=== PATIENT | male | born 1945 ===

== ENCOUNTER 2018-02-02 13:32 | Inpatient (IN) | payer MEDICARE ==
--- NOTE | 2018-02-02 14:05 | ED PDOC ---
HPI: Abdomen Time Seen by Provider: 02/02/18 13:54 Chief Complaint (Nursing): Abdominal Pain Chief Complaint (Provider): Abdominal Pain History Per: Patient History/Exam Limitations: no limitations Onset/Duration Of Symptoms: Days (x3) Outside of [place] travel?: No Current Symptoms Are (Timing): Still Present Location Of Pain/Discomfort: LLQ Quality Of Discomfort: Other (achy discomfort) Associated Symptoms: denies: Fever, Nausea, Vomiting, Diarrhea Additional Complaint(s): 72 y/o male with a history of diverticulitis and hypercholesterolemia presents to the ED for LLQ abdominal pain. Patient states it began 3 days ago and went in to see his PMD for further evaluation when he was instructed to come into the ED. He describes the pain as mild achy discomfort. Patient denies any nausea , vomiting, diarrhea, fever, or hematochezia. Of note, patient has an enlarged prostate. PMD: Abel Breen Past Medical History Reviewed: Historical Data, Nursing Documentation, Vital Signs Vital Signs: Last Vital Signs Temp 98.1 F 02/02/18 13:47 Pulse 73 02/02/18 13:47 Resp 18 02/02/18 13:47 BP 146/72 02/02/18 13:47 Pulse Ox 98 02/02/18 14:18 - Medical History PMH: Diverticulitis, Hypercholesterolemia Denies: Chronic Kidney Disease - Surgical History Surgical History: No Surg Hx - Family History Family History: States: Unknown Family Hx - Home Medications Home Medications: Ambulatory Orders Medication Instructions Recorded Clonazepam 2 mg PO HS 10/02/16 - Allergies Allergies/Adverse Reactions: Allergies Allergy/AdvReac Type Severity Reaction Status Date / Time No Known Allergies Allergy Verified 02/02/18 13:46 Review of Systems ROS Statement: Except As Marked, All Systems Reviewed And Found Negative Constitutional: Negative for: Fever Gastrointestinal: Positive for: Abdominal Pain (LLQ). Negative for: Nausea, Vomiting, Diarrhea, Hematochezia Physical Exam - Reviewed Nursing Documentation Reviewed: Yes Vital Signs Reviewed: Yes - Physical Exam Appears: Positive for: Well, Non-toxic, No Acute Distress Head Exam: Positive for: ATRAUMATIC, NORMAL INSPECTION, NORMOCEPHALIC Skin: Positive for: Normal Color, Warm, Dry Eye Exam: Positive for: EOMI, Normal appearance, PERRL Cardiovascular/Chest: Positive for: Regular Rate, Rhythm. Negative for: Murmur Respiratory: Positive for: Normal Breath Sounds. Negative for: Respiratory Distress Gastrointestinal/Abdominal: Positive for: Normal Exam, Soft, Tenderness (mild to LLQ). Negative for: Mass, Guarding Extremity: Positive for: Normal ROM. Negative for: Calf Tenderness, Swelling Neurologic/Psych: Positive for: Alert, Oriented (x3) - Laboratory Results Result Diagrams: 02/02/18 14:19 02/02/18 14:19 - ECG O2 Sat by Pulse Oximetry: 98 (RA) Pulse Ox Interpretation: Normal Medical Decision Making Medical Decision Making: Time: 13:47 Impression: Abdominal pain r/o diverticulitis and gastroenteritis Initial Plan: * CAT Scan Abd/Pelvis IV contrast * CMP * UDip * CBC * Blood Culture Scribe Attestation: Documented by Everette Short acting as a scribe for Malou Elkins MD. Scribe Attestation: All medical record entries made by the Scribe were at my direction and personally dictated by me. I have reviewed the chart and agree that the record accurately reflects my personal performance of the history, physical exam, medical decision making, and the department course for this patient. I have also personally directed, reviewed, and agree with the discharge instructions and disposition. Disposition - Clinical Impression Clinical Impression: Abdominal pain - Patient ED Disposition Is Patient to be Admitted: Transfer of Care - Disposition Disposition: Transfer of Care Disposition Time: 14:49 Condition: FAIR Forms: Humansized (Tajik) Patient Signed Over To: Lalita Lopez
[2018-02-02 14:31] LABS: BASO # 0.1 K/uL (0.0-0.2); BASO % 1.3 % (0.0-2.0); EOS # 0.3 K/uL (0.0-0.7); HEMOGLOBIN 14.4 g/dL (12.0-18.0); LYMPH % 27.1 % (20.0-40.0); MEAN CELL VOLUME 90.2 fl (80.0-94.0); MEAN CORPUSCULAR HEMOGLOBIN 30.4 pg (27.0-31.0); MEAN CORPUSCULAR HGB CONC 33.7 g/dL (33.0-37.0); MEAN PLATELET VOLUME 10.4 fl (7.2-11.7); MONO # 0.7 K/uL (0.0-0.8); MONO % 8.8 % (0.0-10.0); NEUT # 4.4 K/uL (1.8-7.0); NEUT % 58.8 % (50.0-75.0); RBC 4.74 Mil/uL (4.40-5.90); RED CELL DISTRIBUTION WIDTH 14.2 % (11.5-14.5); WHITE BLOOD COUNT 7.4 K/uL (4.8-10.8)
[2018-02-02 14:45] LABS: ALB/GLOB RATIO 1.1 (1.0-2.1); ALBUMIN 3.9 g/dL (3.5-5.0); ALT/SGPT 35 U/L (21-72); AST/SGOT 21 U/L (17-59); BLOOD UREA NITROGEN 17 mg/dl (9-20); GFR AFRICAN-AMERICAN > 60; GFR NON-AFRICAN AMERICAN > 60
[2018-02-02] MEDS ORDERED: Sodium Chloride 0.9% 50 ML IV ONE (14:52)
[2018-02-02] MEDS ORDERED: Iohexol 300 100 ML IJ ONE (14:52)
--- NOTE | 2018-02-02 15:05 | ED PDOC ---
- Laboratory Results Result Diagrams: 02/02/18 14:19 02/02/18 14:19 - ECG O2 Sat by Pulse Oximetry: 98 (RA) Pulse Ox Interpretation: Normal Medical Decision Making Medical Decision Making: Patient signed out to me by Dr. Westfall @ 15:00, pending CT Abdominal and Pelvis with IV Contrast, labs, and reassessment. Time: 16:24 CT Abdominal and Pelvis with IV Contrast FINDINGS: LOWER THORAX: There is mild linear atelectasis in the lung bases. There is trace pericardial effusion. LIVER: Normal in size with homogeneous enhancement there is fatty liver. . No gross lesion or ductal dilatation. GALLBLADDER AND BILE DUCTS: There are no calcified gallstones. PANCREAS: Normal in size with homogeneous enhancement. No gross lesion or ductal dilatation. SPLEEN: Normal in size and appearance. ADRENALS: No discrete nodules. KIDNEYS AND URETERS: Normal in size with homogeneous enhancement. No hydronephrosis. No solid mass. VASCULATURE: Atherosclerotic aortoiliac calcifications. No aortic aneurysm. BOWEL: The small bowel loops are normal in caliber. There is extensive left colonic diverticulosis. There is apparent segmental mural thickening in the splenic flexure of colon, proximal and mid descending colon. There is moderate amount of stool in the colon. APPENDIX: Normal appendix. PERITONEUM: No free fluid. No free air. LYMPH NODES: No enlarged lymph nodes. BLADDER: Unremarkable. REPRODUCTIVE: Mild enlargement of the prostate gland with median lobe hypertrophy indenting the base of the urinary bladder. BONES: No acute fracture. OTHER FINDINGS: None. IMPRESSION: 1. Extensive left colonic diverticulosis. Apparent segmental mural thickening in the splenic flexure of colon, proximal and mid descending colon is nonspecific and could represent nonspecific infectious/ inflammatory colitis in the appropriate clinical setting. No evidence for perforation or abscess. 2. Mild enlargement of the prostate gland with median lobe hypertrophy indenting on the base of the urinary bladder. Please correlate with PSA levels. Scribe Attestation: Documented by Estevan Patiño, acting as a scribe for Lalita Lopez MD Provider Scribe Attestation: All medical record entries made by the Scribe were at my direction and personally dictated by me. I have reviewed the chart and agree that the record accurately reflects my personal performance of the history, physical exam, medical decision making, and the department course for this patient. I have also personally directed, reviewed, and agree with the discharge instructions and disposition. Disposition - Clinical Impression Clinical Impression: Colitis - POA Present On Arrival: None - Disposition Disposition: Admitted as In-Patient Disposition Time: 17:42 Condition: STABLE
--- NOTE | 2018-02-02 16:25 | CT ---
PROCEDURE: CT Abdomen and Pelvis with contrast HISTORY: h/o diverticulitis LLQ pain COMPARISON: None. TECHNIQUE: CT scan of the abdomen and pelvis was performed after administration of intravenous contrast. Oral contrast was not administered. Coronal and sagittal reformatted images were obtained. Contrast dose: 90 mL Omnipaque 300 Radiation dose: Total exam DLP = 509.79 mGy-cm. This CT exam was performed using one or more of the following dose reduction techniques: Automated exposure control, adjustment of the mA and/or kV according to patient size, and/or use of iterative reconstruction technique. FINDINGS: LOWER THORAX: There is mild linear atelectasis in the lung bases. There is trace pericardial effusion. LIVER: Normal in size with homogeneous enhancement there is fatty liver. . No gross lesion or ductal dilatation. GALLBLADDER AND BILE DUCTS: There are no calcified gallstones. PANCREAS: Normal in size with homogeneous enhancement. No gross lesion or ductal dilatation. SPLEEN: Normal in size and appearance. ADRENALS: No discrete nodules. KIDNEYS AND URETERS: Normal in size with homogeneous enhancement. No hydronephrosis. No solid mass. VASCULATURE: Atherosclerotic aortoiliac calcifications. No aortic aneurysm. BOWEL: The small bowel loops are normal in caliber. There is extensive left colonic diverticulosis. There is apparent segmental mural thickening in the splenic flexure of colon, proximal and mid descending colon. There is moderate amount of stool in the colon. APPENDIX: Normal appendix. PERITONEUM: No free fluid. No free air. LYMPH NODES: No enlarged lymph nodes. BLADDER: Unremarkable. REPRODUCTIVE: Mild enlargement of the prostate gland with median lobe hypertrophy indenting the base of the urinary bladder. BONES: No acute fracture. OTHER FINDINGS: None. IMPRESSION: 1. Extensive left colonic diverticulosis. Apparent segmental mural thickening in the splenic flexure of colon, proximal and mid descending colon is nonspecific and could represent nonspecific infectious/ inflammatory colitis in the appropriate clinical setting. No evidence for perforation or abscess. 2. Mild enlargement of the prostate gland with median lobe hypertrophy indenting on the base of the urinary bladder. Please correlate with PSA levels.
[2018-02-02] MEDS ORDERED: metroNIDAZOLE 500mg/100ml NS 100 ML IV STA (17:43)
[2018-02-02] MEDS ORDERED: Ciprofloxacin 400mg/200ml D5W 400 MG/200 ML BAG IV STA (17:43)
--- NOTE | 2018-02-02 18:36 | RAD ---
HISTORY: COMPARISON: 10/02/2016. TECHNIQUE: Chest PA and lateral FINDINGS: LINES AND TUBES: None. LUNG AND PLEURA: The lungs are hyperinflated and there is peribronchial thickening with chronic changes in both lungs. No lobar pneumonia. HEART AND MEDIASTINUM: The heart is not enlarged. The hilar and mediastinal contours are within normal limits. SKELETAL STRUCTURES: The bony structures are within normal limits for the patient's age. VISUALIZED UPPER ABDOMEN: Normal. OTHER FINDINGS: None. IMPRESSION: No active pulmonary disease. COPD.
[2018-02-02] MEDS ORDERED: metroNIDAZOLE 500mg/100ml NS 100 ML IVPB ONE (18:42)
[2018-02-02] MEDS ORDERED: Ciprofloxacin 400mg/200ml D5W 400 MG/200 ML BAG IV ONE (20:45)
[2018-02-02] MEDS: Dextrose 5%/0.45% NS 1,000 ML IV SCH (22:11)
[2018-02-03] MEDS: metroNIDAZOLE 500mg/100ml NS 100 ML IVPB SCH ×3 (00:36→17:01)
[2018-02-03] MEDS: Dextrose 5%/0.45% NS 1,000 ML IV SCH ×2 (08:02→17:02)
[2018-02-03] MEDS: Ciprofloxacin 400mg/200ml D5W 400 MG/200 ML BAG IVPB SCH ×2 (08:35→20:15)
--- NOTE | 2018-02-03 10:56 | CARD ---
APPROVED REPORT EKG Measurement Heart [id number] <Conclusion> Sinus bradycardia Otherwise normal ECG
--- NOTE | 2018-02-03 22:31 | HP ---
HISTORY OF PRESENT ILLNESS: This is a 72-year-old male with history of multiple medical problems presented to my office since the day of admission with left-sided abdominal pain for 3 days' duration. The pain was associated with loss of appetite. The patient tried to take his antispasmodic medications. The patient's outpatient treatment was failed and the patient was referred to emergency room where he had a CAT scan that showed colitis. The patient was started on both Cipro and Flagyl and admitted for further management. The patient had a colonoscopy about 3 years ago and he was told to have that he has extensive left-sided diverticulosis. REVIEW OF SYSTEMS: Other review of systems is negative. ALLERGIES: NO KNOWN ALLERGY. MEDICATIONS: As per MAR. SOCIAL HISTORY: No history of smoking, EtOH, or substance abuse. FAMILY HISTORY: Noncontributory. PAST MEDICAL HISTORY: Hypercholesterolemia, benign prostatic hypertrophy, and anxiety. FAMILY HISTORY: Noncontributory. PHYSICAL EXAMINATION: GENERAL: The patient is in bed, not in any cardiopulmonary distress at the time of this examination. VITAL SIGNS: Blood pressure 127/63, temperature 97.5, respiratory rate 20, and pulse 60. HEENT: Pupils equal and reactive to light. Normal-appearing mucosa of the conjunctivae, oropharynx, and nasal membrane mucosa. NECK: Supple. No JVD. No carotid bruit. No lymph node. No thyromegaly. CHEST AND LUNGS: Bilateral symmetrical expansion. Good air exchange. No rales. No rhonchi. CARDIOVASCULAR: PMI not localized. S1 and S2. No additional sounds. ABDOMEN: Normoactive bowel sounds. No tenderness. There is left-sided tenderness, but no rebound tenderness. No rigidity. EXTREMITIES: No cyanosis. No clubbing. No edema. CENTRAL NERVOUS SYSTEM: Alert, awake, and oriented x3. No neurological deficits associated. ASSESSMENT: 1. Extensive colitis. 2. History of hypercholesterolemia. 3. Benign prostatic hypertrophy. PLAN: We will continue clear liquid diet and IV fluid and Cipro and Flagyl as the patient showed some improvement today. Charlotte Roman MD
[2018-02-04] MEDS: metroNIDAZOLE 500mg/100ml NS 100 ML IVPB SCH ×3 (00:19→18:00)
[2018-02-04] MEDS: Ciprofloxacin 400mg/200ml D5W 400 MG/200 ML BAG IVPB SCH ×2 (10:05→21:04)
[2018-02-05] MEDS: metroNIDAZOLE 500mg/100ml NS 100 ML IVPB SCH ×3 (00:38→17:51)
[2018-02-05 08:10] VITALS: RESP 18
[2018-02-05] MEDS: Ciprofloxacin 400mg/200ml D5W 400 MG/200 ML BAG IVPB SCH ×2 (08:34→20:52)
--- NOTE | 2018-02-05 22:49 | PN ---
DATE: 02/05/2018 SUBJECTIVE: The patient is seen today 02/05/2018. He has less abdominal pain. The patient had four bowel movements during the last 24 hours. OBJECTIVE: VITAL SIGNS: Blood pressure 122/63, temperature 98.1, respiratory rate 18 and pulse 62. HEENT: Pupils are equal, reactive to light. Normal-appearing mucosa of the conjunctivae, oropharynx and nasal membrane mucosa. NECK: Supple. No JVD. No carotid bruit. No lymph node. No thyromegaly. CHEST: Lungs: Bilateral symmetrical expansion. Good air exchange. No rales, no rhonchi. CARDIOVASCULAR: PMI not localized. S1 and S2. No additional sounds. ABDOMEN: Normoactive bowel sounds. No tenderness. No organomegaly. No masses. EXTREMITIES: No cyanosis, no clubbing, no edema. 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 No neurological deficit could be appreciated. ASSESSMENT: 1. Colitis/diverticulitis. 2. History of hypercholesterolemia. 3. Anxiety/depression. PLAN Continue Cipro and Flagyl. Advance diet as tolerated. If the patient tolerates diet tomorrow and no abdominal pain, we will discharge home on p.o. antibiotics for few more days and to follow with GI for possible colonoscopy as an outpatient. Charlotte Roman MD
[2018-02-06] MEDS: metroNIDAZOLE 500mg/100ml NS 100 ML IVPB SCH (00:43)
[2018-02-06 08:00] VITALS: BP 115/66; PULSE 55; TEMP 98; O2SAT 93
[2018-02-06] MEDS: Ciprofloxacin 400mg/200ml D5W 400 MG/200 ML BAG IVPB SCH (08:54)
[2018-02-06] MEDS ORDERED: metroNIDAZOLE 500mg/100ml NS 100 ML IVPB SCH (09:00)
--- NOTE | 2018-02-07 01:54 | DS ---
REASON FOR ADMISSION: This is a 72-year-old male with history of multiple medical problems, admitted with acute colitis/diverticulitis. COURSE OF HOSPITALIZATION: The patient was admitted to medical floor and he was started on IV fluid and IV antibiotics. The patient's symptoms gradually improved. The patient initially was started on IV fluid and he was kept n.p.o. Diet was gradually advanced from fluid diet to regular diet. The patient tolerated well and he was discharged home to continue Cipro and Flagyl p.o. for another week. The patient also was given probiotic. The patient was asked to follow with Gastroenterology as an outpatient for possible colonoscopy. FINAL DIAGNOSES: 1. Acute colitis. 2. Diverticulitis. 3. Hypercholesterolemia. 4. Depression/anxiety. [facility] MD Abel
== END 2018-02-06 12:07 | disposition home or self-care (01) | DRG 392 ==
LOC: H.ER 13:32 → H.ERHOLD 17:42 → H.MEDSURG1 19:54
PROVIDERS: ADMIT Internal Medicine; ATTEND Internal Medicine
DX: K52.9 Noninfective gastroenteritis and colitis, unspecified (principal); K57.92 Diverticulitis of intestine, part unspecified, without perforation or abscess without bleeding; E78.00 Pure hypercholesterolemia, unspecified; F32.9 Major depressive disorder, single episode, unspecified; F41.9 Anxiety disorder, unspecified; N40.0 Benign prostatic hyperplasia without lower urinary tract symptoms